=== PATIENT | female | born 1990 | race Caucasian/White ===

== ENCOUNTER 2019-11-19 11:14 | Observation (INO) | payer OTHER ==
[~2019-11-19] VITALS: Ht 162.6 cm; Wt 77.1 kg
[2019-11-19 13:13] VITALS: BP_SYST 109
== END 2019-11-19 14:00 | disposition home or self-care (01) ==
LOC: SPU 11:14
PROVIDERS: ADMIT Obstetrics & Gynecology; ATTEND Obstetrics & Gynecology
DX: O62.9 Abnormality of forces of labor, unspecified (principal); O26.893 Other specified pregnancy related conditions, third trimester; N89.8 Other specified noninflammatory disorders of vagina; Z3A.38 38 weeks gestation of pregnancy
CPT/HCPCS: 59025; G0378

== ENCOUNTER 2019-11-21 09:30 | Observation (INO) | payer OTHER ==
[~2019-11-21] VITALS: Ht 162.6 cm; Wt 78.0 kg
== END 2019-11-21 11:20 | disposition home or self-care (01) ==
LOC: SPU 09:30
PROVIDERS: ADMIT Obstetrics & Gynecology; ATTEND Obstetrics & Gynecology
DX: O62.9 Abnormality of forces of labor, unspecified (principal); Z3A.38 38 weeks gestation of pregnancy
CPT/HCPCS: 59025; G0378

== ENCOUNTER 2019-11-24 09:57 | Observation (INO) | payer OTHER | END 2019-11-24 10:45 | disposition home or self-care (01) | LOC: SPU 09:57 | PROVIDERS: ADMIT Obstetrics & Gynecology; ATTEND Obstetrics & Gynecology | DX: O34.90 Maternal care for abnormality of pelvic organ, unspecified, unspecified trimester (principal); Z3A.39 39 weeks gestation of pregnancy | CPT/HCPCS: 59025; G0378 ==

== ENCOUNTER 2019-12-01 15:21 | Inpatient (IN) | payer OTHER ==
[~2019-12-01] VITALS: Ht 162.6 cm; Wt 78.9 kg
[~2019-12-01 15:21] MED LIST: LIDOCAINE PF 1% 30ML(POUR BTL) INJ ONE
[2019-12-01] MEDS: LR 1,000 ML IV SCH ×2 (20:30→21:30)
[2019-12-01] MEDS ORDERED: LR 1,000 ML IV ONE (21:12)
[2019-12-01] MEDS ORDERED: LR 500 ML IV ONE (21:12)
[2019-12-01] MEDS ORDERED: OXYTOCIN/0.9 % SODIUM CHLORIDE 1,000 ML IV SCH (21:12)
[2019-12-01] MEDS ORDERED: TERBUTALINE SULFATE 1 MG/ML VIAL SUBCUT ONE (21:15)
[2019-12-01 21:39] LABS: BASOPHILS % (AUTO) 0.2 % (0.0-2.0); EOSINOPHILS # (AUTO) 0.1 K/uL (0.0-0.4); EOSINOPHILS % (AUTO) 0.7 % (0.0-4.0); HEMATOCRIT 33.4 % (36-48); HEMOGLOBIN 10.9 g/dL (12.0-16.0); LYMPHOCYTES # (AUTO) 1.9 K/uL (1.0-5.5); LYMPHOCYTES % (AUTO) 16.9 % (20.5-51.5); MEAN CORPUSCULAR HEMOGLOBIN 27 pg (27-31); MEAN CORPUSCULAR HGB CONC 33 % (32-36); MEAN CORPUSCULAR VOLUME 84 fL (79.0-98.0); MONOCYTES % (AUTO) 9.2 % (1.7-9.3); NEUTROPHILS # (AUTO) 8.3 K/uL (1.8-7.7); PLATELET COUNT (AUTO) 227 K/uL (130-430); RED BLOOD CELL COUNT(AUTO) 3.99 MIL/uL (4.2-6.2); RED CELL DISTRIBUTION WIDTH 15.2 % (9.0-15.0); WHITE BLOOD COUNT (AUTO) 11.4 K/uL (4.8-10.8)
[2019-12-01 21:52] VITALS: BP_SYST 114
[2019-12-02] MEDS: LR 1,000 ML IV SCH ×2 (01:55→09:09)
[2019-12-02] MEDS ORDERED: MORPHINE SULFATE 10 MG/ML VIAL IVP PRN (08:15)
[2019-12-02] MEDS ORDERED: MORPHINE SULFATE 10 MG/ML VIAL ONE (08:23)
[2019-12-02] MEDS ORDERED: OXYTOCIN/0.9 % SODIUM CHLORIDE 1,000 ML IV ONE (09:57)
[2019-12-02] MEDS ORDERED: MEASLES,MUMPS&RUBELLA VACC/PF 12500 UNIT/0.5 ML VIAL SUBQ PRN (10:00)
[2019-12-02] MEDS ORDERED: OXYCODONE/ACETAMINOPHEN 5-325 TABLET PO PRN (10:00)
[2019-12-02] MEDS ORDERED: LANOLIN 7 GM OINT. TP PRN (10:00)
[2019-12-02] MEDS ORDERED: RHO(D) IMMUNE GLOBULIN/MALTOSE 1500 UNITS/1.3 ML (WINHRO) IM PRN (10:00)
[2019-12-02] MEDS ORDERED: DERMOPLAST SPRAY TP PRN (10:00)
[2019-12-02] MEDS ORDERED: HYDROcodone/ACETAMIN 5-325 MG TAB (NORCO/ VICODIN) PO PRN (10:00)
[2019-12-02] MEDS ORDERED: DIPH-TET-PERTUS Vaccine 0.5 ML VIAL (ADACEL) I.M. PRN (10:00)
[2019-12-02] MEDS ORDERED: SENNOSIDES/DOCUSATE SODIUM 1 TAB TABLET(SENOKOT-S) PO PRN (10:00)
[2019-12-02] MEDS ORDERED: WITCH HAZEL LEAF 1 MED.PAD MED.PAD TP PRN (10:00)
[2019-12-02] MEDS: IBUPROFEN 600 MG TABLET PO SCH ×3 (10:08→23:14)
[2019-12-02] MEDS: OXYCODONE/ACETAMINOPHEN 5-325 TABLET PO PRN ×2 (16:56→22:30)
[2019-12-02] MEDS ORDERED: TEMAZEPAM 15 MG CAPSULE PO PRN (21:00)
[2019-12-02] MEDS: DOCUSATE SODIUM 100 MG CAPSULE PO PRN (23:14)
[2019-12-03] MEDS: IBUPROFEN 600 MG TABLET PO SCH ×4 (05:16→23:28)
[2019-12-03] MEDS: DOCUSATE SODIUM 100 MG CAPSULE PO PRN ×3 (05:16→23:28)
[2019-12-03 06:42] LABS: BASOPHILS # (AUTO) 0.1 K/uL (0.0-0.2); BASOPHILS % (AUTO) 0.3 % (0.0-2.0); EOSINOPHILS # (AUTO) 0.1 K/uL (0.0-0.4); EOSINOPHILS % (AUTO) 0.9 % (0.0-4.0); HEMATOCRIT 24.8 % (36-48); LYMPHOCYTES # (AUTO) 2.4 K/uL (1.0-5.5); LYMPHOCYTES % (AUTO) 15.3 % (20.5-51.5); MEAN CORPUSCULAR HEMOGLOBIN 28 pg (27-31); MEAN CORPUSCULAR HGB CONC 32 % (32-36); MEAN CORPUSCULAR VOLUME 86 fL (79.0-98.0); MONOCYTES % (AUTO) 6.5 % (1.7-9.3); NEUTROPHILS # (AUTO) 11.8 K/uL (1.8-7.7); PLATELET COUNT (AUTO) 210 K/uL (130-430); WHITE BLOOD COUNT (AUTO) 15.3 K/uL (4.8-10.8)
[2019-12-03] MEDS: FERROUS SULFATE 325 MG TABLET.DR PO SCH ×3 (09:04→23:28)
[2019-12-04] MEDS: OXYCODONE/ACETAMINOPHEN 5-325 TABLET PO PRN (04:08)
[2019-12-04] MEDS: IBUPROFEN 600 MG TABLET PO SCH (06:10)
[2019-12-04] MEDS: FERROUS SULFATE 325 MG TABLET.DR PO SCH (10:00)
== END 2019-12-04 11:30 | disposition home or self-care (01) | DRG 560 ==
LOC: SPU 20:55
PROVIDERS: ADMIT Obstetrics & Gynecology; ATTEND Obstetrics & Gynecology
PROC: 10E0XZZ Delivery of Products of Conception, External Approach (ICD-10-PCS; principal; 2019-12-02)
PROC: 0HQ9XZZ Repair Perineum Skin, External Approach (ICD-10-PCS; 2019-12-02)
DX: O24.429 Gestational diabetes mellitus in childbirth, unspecified control (principal); O69.81X0 Labor and delivery complicated by cord around neck, without compression, not applicable or unspecified; O70.0 First degree perineal laceration during delivery; Z3A.40 40 weeks gestation of pregnancy; Z37.0 Single live birth
CPT/HCPCS: 36415; 81002-TC; 82947-TC; 82962; 85025; 86592; 86886; 86900; 86901; J2001; J2270; J2590